=== PATIENT | female | born 1965 | race Caucasian/White ===

== ENCOUNTER 2023-09-02 09:43 | Outpatient (CLI) | payer BC | END 2023-09-02 09:44 | disposition home or self-care (01) | LOC: CSHMRI 09:43 | PROVIDERS: ATTEND Orthopaedic Surgery | DX: S83.242A Other tear of medial meniscus, current injury, left knee, initial encounter (principal); S83.232A Complex tear of medial meniscus, current injury, left knee, initial encounter; M94.8X6 Other specified disorders of cartilage, lower leg ==